=== PATIENT | female | born 1965 | race Caucasian/White ===

== ENCOUNTER 2020-06-06 14:05 | Emergency (ER) | payer MEDICAID, SELFPAY ==
--- NOTE | ~2020-06-06 | CT_ITS ---
EXAMINATION: CT CHEST WITHOUT CONTRAST CLINICAL INFORMATION: Chest radiograph shows infiltrates COMPARISON: None TECHNIQUE: Multidetector volumetric CT imaging of the chest was done. Axial MIP volume rendering provided. Sagittal and coronal reformatted images were obtained. This CT examination was performed using dose optimization techniques as appropriate, variously including the following: *Automated exposure control *Adjustment of mA and/or kV according to patient size (this includes techniques or standardized protocols for targeted exams where dose is matched to indication/reason for exam; i.e. extremities or head) *Use of iterative reconstruction technique DLP: 324 mGy-cm FINDINGS: LUNGS: Scattered ground-glass infiltrates/opacities are seen in both lungs suggestive of Covid pneumonia. MEDIASTINUM: Some small pretracheal and precarinal lymph nodes are present that are most likely reactive. PLEURA: There is no pleural effusion. No pleural mass or thickening. AXILLA: No lymphadenopathy. UPPER ABDOMEN: Status post cholecystectomy. OSSEOUS STRUCTURES: Degenerative changes present in the spine. No bony destructive lesions. CT/CT chest wo con IMPRESSION: Multi focal ground-glass opacity seen suggesting Covid pneumonia.
--- NOTE | ~2020-06-06 | XR_ITS ---
EXAMINATION: XR CHEST CLINICAL INFORMATION: SOB, wheezing COMPARISON: None TECHNIQUE: Frontal view of the chest was obtained. FINDINGS: The lungs are well-expanded with increased bilateral interstitial markings but no confluent infiltrate. The heart size and perivascular is normal. No gross bony abnormality seen. XR/XR chest 1V IMPRESSION: Bilateral increased interstitial markings, ? Interstitial Pneumonitis, less likely interstitial edema edema.
[2020-06-06 14:24] VITALS: BP 147/107; PULSE 97; RESP 30; TEMP 36.9; O2SAT 98
[2020-06-06 14:42] VITALS: BP 160/87; PULSE 85; RESP 26; TEMP 37; O2SAT 97; BMI 49.3
--- NOTE | 2020-06-06 14:45 | ECG_ITS ---
Test Reason : SOB Blood Pressure : / mmHG Vent. Rate : 078 BPM Atrial Rate : 078 BPM P-R Int : 140 ms QRS Dur : 072 ms QT Int : 376 ms P-R-T Axes : 065 021 -23 degrees QTc Int : 428 ms Normal sinus rhythm Nonspecific T wave abnormality Abnormal ECG When compared to the previous EKG of No significant changes seen Referred By: Rola Lopez Electronically Signed By:NORBERTO GIMENEZ MD
--- NOTE | 2020-06-06 15:22 | ED.GENADULT ---
HPI - General Adult General Chief complaint: Dyspnea Stated complaint: asthma Time Seen by Provider: 06/06/20 14:43 Source: patient Mode of arrival: ambulatory Limitations: language barrier History of Present Illness HPI narrative: 54 y/o female with history of obesity, asthma, anxiety, depression, hypothyroidism, anemia, DM2 who presents with 4 days of lethargy, fatigue, decreased appetite, loss of sense of taste and dry cough. She is anxious. She is worried she has COVID-19. She states someone was in her home 10 days ago who was later diagnosed with COVID-19. She has been having a dry cough and using her asthma inhaler with some relief. She denies chest pain. She denies fevers at home. Her biggest complaint is lack of appetite and fatigue. MD complaint: COVID symptoms Onset (ago): day(s) (3) Location: head, back and abdomen Radiation: non-radiation Severity: moderate Quality: aching Pain Consistency: intermittent Relieving factors: rest Exacerbating factors: movement Associated symptoms: cough, fever/chills, headaches, loss of appetite and malaise Treatments prior to arrival: none Related Data Previous Rx's Medication Instructions Recorded azithromycin [Zithromax Z-Ramon] See Rx Instructions .ROUTE 06/06/20 .COMPLEX #6 tab prednisone 40 mg PO DAILY #10 tab 06/06/20 Allergies Allergy/AdvReac Type Severity Reaction Status Date / Time No Known Allergies Allergy Unverified 01/10/20 18:38 [No Known Allergies*] Review of Systems Review of Systems: Constitutional: + Fever (subjective), No Chills ENT/Mouth: + sore throat, No Rhinorrhea, No Swallowing Difficulty Cardiovascular: No Chest Pain, + SOB, No Orthopnea, No Edema Respiratory: + Cough, No Sputum, No Wheezing, + dyspnea Gastrointestinal: No Nausea, No Vomiting, No Diarrhea, No abdominal Pain Genitourinary: No Dysuria, No Urinary Frequency, No Hematuria Musculoskeletal: No joint pain, No Myalgias Skin: No Skin Lesions, No rash Neuro: + Weakness, No Numbness, No Dizziness, + Headache Psych: + Anxiety/Panic, No Depression Heme/Lymph: No Bruising, No Lymphadenopathy Endocrine: No Polyuria, No Polydipsia PMFSH Past Medical History Attestation statement: The following information was validated with the patient. Medical History Anemia Anxiety Asthma GERD (gastroesophageal reflux disease) HLD (hyperlipidemia) HTN (hypertension) Hypothyroid Surgical History (Updated 06/06/20 @ 14:47 by Ravinder Peralta) Hx of appendectomy Hx of cholecystectomy Social History Social History Alcohol intake: never Smoking Status: Never smoker Use of substances other than those prescribed or required for medical reasons: No Advance Directives: No Advance Directives Information Provided: No Physical Exam Vital Signs: Vital Signs: Last Vital Signs Temp 98.7 F 06/06/20 16:21 Pulse 91 06/06/20 20:28 Resp 24 H 06/06/20 20:28 BP 133/77 06/06/20 20:28 Pulse Ox 95 06/06/20 20:28 Body Mass Index 49.3 Appearance: Alert. Oriented X3. Anxious. Eyes: Pupils equal, round and reactive to light. ENT: Pharynx normal. Neck: Normal inspection. Neck supple. CVS: Normal heart rate and rhythm. Pulses normal. Respiratory: No respiratory distress. Breath sounds normal. Abdomen: Soft and nontender. +BS x4 Skin: Skin warm and dry. Normal skin color. Normal skin turgor. No rashes. Extremities: No lower extremity edema. Neuro: Oriented X 3. No motor deficit. No sensory deficit. Course Course Course Narrative: 54 y/o female presenting with dry cough, loss of appetite and fatigue after COVID exposure. RR mid 20s on arrival and patient is extremely anxious. She is not hypoxic and her lungs are clear. No evidence active asthma exacerabtion, she took her inhaler WEAVER HAND LOOM with good effect. Will get COVID workup. Low dose ativan ordered for anxiety. Reevaluation(s) Reevaluation #1: CXR showing bilateral increased interstitial markings, imaging reviewed. It is sllightly worse than CXR from 2018. Her BNP is <10. Will get CT chest for further evaluation. Her COVID test is positive. ?COVID PNA. Reevaluation #2: CT scan showing COVID PNA- she was ambulated without any hypoxia or respiratory distress. She is stable for discharge at this time with steroids and azithromycin. She has been counseled extensively that if she develops difficulty breathing she should come back to the ER right away. Medical Decision Making Lab Data Result diagrams: 06/06/20 15:45 06/06/20 15:45 Labs: Lab Results 06/06/20 06/06/20 06/06/20 Range/Units 15:45 15:45 15:45 WBC 4.1 L (4.8-10.8) X10*3/uL RBC 5.28 (4.20-5.50) X10*6/uL Hgb 15.2 (12.0-16.0) g/dl Hct 47.1 H (37-47) % MCV 89.2 (80-98) fL MCH 28.8 (27.0-33.0) pg MCHC 32.3 (31.0-35.0) g/dl RDW 14.0 (11.0-16.0) % Plt Count 205 (160-400) X10*3/uL MPV 10.3 (9.4-12.3) fL Immature Gran % (Auto) 0.2 (0.0-0.4) % Neut % (Auto) 63.6 (45-73) % Lymph % (Auto) 27.8 (20-40) % [place] % (Auto) 7.5 (2-11) % Eos % (Auto) 0.7 (0-4) % Baso % (Auto) 0.2 (0-2) % Lymph # (Auto) 1.2 (1.2-4.9) X10*3/uL [place] # (Auto) 0.3 (0.1-1.2) X10*3/uL Eos # (Auto) 0.0 (0.0-0.4) X10*3/uL Baso # (Auto) 0.0 (0.0-0.2) X10*3/uL Abs Immat Gran (auto) 0.01 (0.00-0.03) X10*3/uL Absolute Neuts (auto) 2.6 (2.0-8.3) X10*3/uL Absolute Nucleated RBC 0.000 (0.0-0.012) X10*3/uL Nucleated RBC % (auto) 0.0 (0.0-0.2) /100WBC Hold Blue Top SEE NOTE Sodium 141 (135-145) mmol/L Potassium 3.7 (3.3-5.1) mmol/L Chloride 106 (96-108) mmol/L Carbon Dioxide 27 (22-29) mmol/L Anion Gap 12 (12-20) BUN 11 (9-16) mg/dL Creatinine 0.94 (0.5-1.4) mg/dL Estim Creat Clear Calc 84.2 Estimated GFR > 60 Random Glucose 120 H (60-115) mg/dL Calcium 8.2 L (8.4-10.2) mg/dL Magnesium 2.2 (1.6-2.6) mg/dL Total Bilirubin 0.5 (0.0-1.0) mg/dL Direct Bilirubin 0.4 (0.0-0.5) mg/dL AST 29 (5-31) U/L ALT 27 (0-31) U/L Alkaline Phosphatase 128 H (39-117) U/L C-Reactive Protein 2.04 H (< or = 0.50) mg/dL B-Natriuretic Peptide (<100) pg/mL Total Protein 7.0 (6.5-8.0) g/dL Albumin 3.9 (3.5-5.0) g/dL Procalcitonin ng/mL Coronavirus (PCR) (Negative) Influenza Type A (PCR) (Negative) Influenza Type B (PCR) (Negative) RSV RNA Qual (PCR) (Negative) 06/06/20 06/06/20 06/06/20 Range/Units 15:45 15:45 15:45 WBC (4.8-10.8) X10*3/uL RBC (4.20-5.50) X10*6/uL Hgb (12.0-16.0) g/dl Hct (37-47) % MCV (80-98) fL MCH (27.0-33.0) pg MCHC (31.0-35.0) g/dl RDW (11.0-16.0) % Plt Count (160-400) X10*3/uL MPV (9.4-12.3) fL Immature Gran % (Auto) (0.0-0.4) % Neut % (Auto) (45-73) % Lymph % (Auto) (20-40) % [place] % (Auto) (2-11) % Eos % (Auto) (0-4) % Baso % (Auto) (0-2) % Lymph # (Auto) (1.2-4.9) X10*3/uL [place] # (Auto) (0.1-1.2) X10*3/uL Eos # (Auto) (0.0-0.4) X10*3/uL Baso # (Auto) (0.0-0.2) X10*3/uL Abs Immat Gran (auto) (0.00-0.03) X10*3/uL Absolute Neuts (auto) (2.0-8.3) X10*3/uL Absolute Nucleated RBC (0.0-0.012) X10*3/uL Nucleated RBC % (auto) (0.0-0.2) /100WBC Hold Blue Top Sodium (135-145) mmol/L Potassium (3.3-5.1) mmol/L Chloride (96-108) mmol/L Carbon Dioxide (22-29) mmol/L Anion Gap (12-20) BUN (9-16) mg/dL Creatinine (0.5-1.4) mg/dL Estim Creat Clear Calc Estimated GFR Random Glucose (60-115) mg/dL Calcium (8.4-10.2) mg/dL Magnesium (1.6-2.6) mg/dL Total Bilirubin (0.0-1.0) mg/dL Direct Bilirubin (0.0-0.5) mg/dL AST (5-31) U/L ALT (0-31) U/L Alkaline Phosphatase (39-117) U/L C-Reactive Protein (< or = 0.50) mg/dL B-Natriuretic Peptide < 10 (<100) pg/mL Total Protein (6.5-8.0) g/dL Albumin (3.5-5.0) g/dL Procalcitonin 0.04 ng/mL Coronavirus (PCR) POSITIVE A (Negative) Influenza Type A (PCR) NEGATIVE (Negative) Influenza Type B (PCR) NEGATIVE (Negative) RSV RNA Qual (PCR) NEGATIVE (Negative) ECG Data Attestation: I personally reviewed and interpreted this ECG as follows: Interpretation: normal sinus rhythm, HR 78 bpm, normal CT interval, normal QTc, nonspecific t-wave abnormality Critical Care Time Critical Care Time Critical Care Time: No Discharge Plan Discharge Clinical Impression: COVID-19 Patient Disposition: Home, Self-Care Instructions: COVID-19 (Coronavirus Disease 2019) (ED) Additional Instructions: You were found to be COVID-19 POSITIVE today. Your oxygen levels were normal. Take the prescribed steroids and antibiotics for your lungs. Rest. Drink plenty of fluids. Do not go out in public for the next 10 days. Take over the counter cold/flu medications as needed for your symptoms. Take Tylenol and/or Motrin as needed for fevers and body aches. Follow up with your doctor this week. If you shortness of breath worsens , if you develop difficulty breathing or any other concerning symptom come back to the ER for further evaluation. Prescriptions: New azithromycin [Zithromax Z-Ramon] 250 mg tablet See Rx Instructions .ROUTE .COMPLEX Qty: 6 RF: 0 prednisone 20 mg tablet 40 mg PO DAILY Qty: 10 RF: 0 Print Language: [place]
[2020-06-06 15:46] VITALS: PULSE 81; RESP 22; O2SAT 98
[2020-06-06 15:56] LABS: MANUAL DIFF FLAG NO
[2020-06-06 16:03] LABS: Basophils Percent Auto 0.2 % (0-2); Eosinophils Percent Auto 0.7 % (0-4); Hematocrit 47.1 % (37-47); Hemoglobin 15.2 g/dl (12.0-16.0); Imm Gran Abs Auto 0.01 X10*3/uL (0.00-0.03); Imm Gran Pct Auto 0.2 % (0.0-0.4); Lymphocytes Absolute Auto 1.2 X10*3/uL (1.2-4.9); Lymphocytes Percent Auto 27.8 % (20-40); Mean Corpuscular HGB Conc 32.3 g/dl (31.0-35.0); Mean Corpuscular Hemoglobin 28.8 pg (27.0-33.0); Mean Corpuscular Volume 89.2 fL (80-98); Mean Platelet Volume 10.3 fL (9.4-12.3); Monocytes Absolute Auto 0.3 X10*3/uL (0.1-1.2); Monocytes Percent Auto 7.5 % (2-11); Neutrophils Absolute Auto 2.6 X10*3/uL (2.0-8.3); Neutrophils Percent Auto 63.6 % (45-73); Platelet Count 205 X10*3/uL (160-400); Red Blood Count 5.28 X10*6/uL (4.20-5.50); White Blood Count 4.1 X10*3/uL (4.8-10.8)
[2020-06-06 16:21] VITALS: BP 145/73; PULSE 86; RESP 22; TEMP 37.1; O2SAT 97
[2020-06-06] MEDS: LORazepam 1 MG TABLET PO (16:27)
[2020-06-06 16:34] LABS: Alanine Aminotransferase 27 U/L (0-31); Albumin Level 3.9 g/dL (3.5-5.0); Alkaline Phosphatase 128 U/L (39-117); Anion Gap 12 (12-20); Aspartate Amino Transferase 29 U/L (5-31); Bilirubin Direct 0.4 mg/dL (0.0-0.5); Bilirubin Total 0.5 mg/dL (0.0-1.0); Blood Urea Nitrogen 11 mg/dL (9-16); C Reactive Protein 2.04 mg/dL (< or = 0.50); Calcium 8.2 mg/dL (8.4-10.2); Carbon Dioxide 27 mmol/L (22-29); Chloride 106 mmol/L (96-108); Creatinine Clr Calc Pharmacy 84.2; Estimated Glomerular Filt Rate > 60; Glucose Random 120 mg/dL (60-115); Magnesium 2.2 mg/dL (1.6-2.6); Potassium 3.7 mmol/L (3.3-5.1); Sodium 141 mmol/L (135-145)
[2020-06-06 16:35] LABS: Influenza A PCR NEGATIVE (Negative); Influenza B PCR NEGATIVE (Negative); Resp Syncy Virus RNA Qual PCR NEGATIVE (Negative); SARS COV2 PCR INHOUSE POSITIVE (Negative)
[2020-06-06 16:43] LABS: B Type Natriuretic Peptide < 10 pg/mL (<100)
[2020-06-06 16:50] LABS: Procalcitonin 0.04 ng/mL
[2020-06-06 17:21] VITALS: BP 152/80; PULSE 87; RESP 19; O2SAT 95
[2020-06-06 20:28] VITALS: BP 133/77; PULSE 91; RESP 24; O2SAT 95
--- NOTE | 2020-06-06 20:40 | PC.NURSE ---
PROVIDER REQUESTED THAT WE AMBULATE PT ON SPO2 MONITOR. PT AMBULATORY, SPO2 REMAINED 96% ROOM AIR WHILE AMBULATORY DOWN HALLWAY. PT REQUESTED SOMETHING TO EAT AND ICE WATER.
== END 2020-06-06 22:00 | disposition home or self-care (01) ==
PROVIDERS: Physician Assistant; Emergency Provider Emergency Medicine Emergency Medical Services; PCP Internal Medicine
DX: U07.1 COVID-19 (principal); J12.82 Pneumonia due to coronavirus disease 2019; F41.9 Anxiety disorder, unspecified; I10 Essential (primary) hypertension; J45.909 Unspecified asthma, uncomplicated; E11.9 Type 2 diabetes mellitus without complications; Z79.899 Other long term (current) drug therapy
CPT/HCPCS: 0241U; 36415; 71045; 71250; 80048; 80076; 83735; 83880; 84145; 85025; 86140; 93005; 96365; 96366; 96375; 99284

== ENCOUNTER 2020-09-15 10:48 | Outpatient (REF) | payer MEDICAID, SELFPAY ==
--- NOTE | ~2020-09-15 | XR_ITS ---
EXAMINATION: XR KNEE, RIGHT XR KNEE, LEFT CLINICAL INFORMATION: Bilateral knee pain. COMPARISON: Radiographs bilateral knees 10/24/2013. TECHNIQUE: Each knee is imaged in 4 views. There are a total of 8 views. FINDINGS: Right: There is no fracture, dislocation, or suprapatellar effusion. Hoffa's fat pad appears normal. There is no joint narrowing or erosive change or chondrocalcinosis. Mild spurring is present at the quadriceps insertion patella. Left: There is no fracture, dislocation, or definite suprapatellar effusion. Hoffa's fat pad appears normal. No significant joint narrowing. No subchondral sclerosis, erosive change, or chondrocalcinosis. A small stable osteochondroma is again suggested from the medial side tibial metaphysis with corticated margin merging with the [place] bone. No periostitis. Axial patellar views suggest mild lateral tilting. XR/XR knee LT 4V IMPRESSION: 1. Right: Unremarkable right knee. 2. Left: Small stable osteochondroma proximal medial tibia similar to 2014. Mild lateral tilting patella.
--- NOTE | ~2020-09-15 | XR_ITS ---
EXAMINATION: XR KNEE, RIGHT XR KNEE, LEFT CLINICAL INFORMATION: Bilateral knee pain. COMPARISON: Radiographs bilateral knees 10/24/2013. TECHNIQUE: Each knee is imaged in 4 views. There are a total of 8 views. FINDINGS: Right: There is no fracture, dislocation, or suprapatellar effusion. Hoffa's fat pad appears normal. There is no joint narrowing or erosive change or chondrocalcinosis. Mild spurring is present at the quadriceps insertion patella. Left: There is no fracture, dislocation, or definite suprapatellar effusion. Hoffa's fat pad appears normal. No significant joint narrowing. No subchondral sclerosis, erosive change, or chondrocalcinosis. A small stable osteochondroma is again suggested from the medial side tibial metaphysis with corticated margin merging with the [place] bone. No periostitis. Axial patellar views suggest mild lateral tilting. XR/XR knee RT 4V IMPRESSION: 1. Right: Unremarkable right knee. 2. Left: Small stable osteochondroma proximal medial tibia similar to 2014. Mild lateral tilting patella.
== END 2020-09-15 10:49 | disposition home or self-care (01) ==
LOC: HO.XRAY 10:48
PROVIDERS: PCP Nurse Practitioner Primary Care; Visit Provider Nurse Practitioner Primary Care
DX: M25.562 Pain in left knee (principal); M25.561 Pain in right knee
CPT/HCPCS: 73564

== ENCOUNTER → 2020-10-22 10:22 | Outpatient (BNVA) | payer MEDICAID, SELFPAY | PROVIDERS: PCP Nurse Practitioner Primary Care; Visit Provider Physician Assistant | DX: M17.12 Unilateral primary osteoarthritis, left knee (principal) | CPT/HCPCS: 20610; 99202; J1020 ==

== ENCOUNTER → 2020-11-12 11:02 | Outpatient (BNVA) | payer MEDICAID, SELFPAY | PROVIDERS: PCP Nurse Practitioner Primary Care; Visit Provider Physician Assistant | DX: M17.12 Unilateral primary osteoarthritis, left knee (principal); M25.562 Pain in left knee | CPT/HCPCS: 99212 ==

== ENCOUNTER 2020-12-15 08:44 | Outpatient (REF) | payer MEDICAID, SELFPAY ==
--- NOTE | ~2020-12-15 | MR_ITS ---
EXAMINATION: MR KNEE WITHOUT CONTRAST, LEFT CLINICAL INFORMATION: Unilateral primary osteoarthritis, left knee. Patient reports severe left knee pain for 5-6 months. COMPARISON: XR left knee 09/15/2020 TECHNIQUE: MRI of the knee without contrast was performed using routine sequences on a high-field scanner. FINDINGS: MENISCI: Medial Meniscus: There is complex degeneration and irregular partial radial-type tearing of the posterior horn of the medial meniscus extending to the posterior root. There is moderate medial extrusion of the body. There is a focal defect in the peripheral inferior surface of the body suspicious for a focal tear. Lateral Meniscus: There degenerative irregularity and suspected superimposed partial tearing of the anterior root of the lateral meniscus. The rest of the lateral meniscus appears intact. LIGAMENTS: Cruciate: Intact Collateral: There is mild swelling and intermediate signal abnormality of the proximal medial collateral ligament consistent with a mild sprain of indeterminate age. The lateral supporting structures are intact. EXTENSOR MECHANISM: Intact ARTICULAR CARTILAGE/BONE: Patellofemoral Compartment: There is focal cartilage surface irregularity and [id number] thinning at the medial margin of the medial facet of the patella. There is patchy idli-in-eaeizcwj cartilage irregularity and thinning in the femoral trochlea, most prominent superolaterally. There are small marginal osteophytes. Medial Compartment: There is patchy cartilage loss ranging from mild to high-grade. There is mild subchondral bone marrow edema in the medial tibial plateau. There are small marginal osteophytes. Incidental note is made of a small sessile osteochondroma involving the proximal medial tibial metaphysis. Lateral Compartment: Normal. JOINT FLUID AND BURSAE: Moderate joint effusion. No Davidson's cyst. Trace edema/fluid deep to the distal pes anserine tendon suggesting mild bursitis. ADDITIONAL FINDINGS: There is mild distal semimembranosus insertional tendinosis and a small low-grade partial tear. MR/MR knee LT wo con IMPRESSION: 1. Complex degeneration and irregular partial radial-type tearing of the posterior horn of the medial meniscus extending to the posterior root. Moderate medial extrusion of the body. Focal peripheral undersurface tear of the body. 2. Degeneration and superimposed partial tearing of the anterior root of the lateral meniscus. 3. Mild proximal medial collateral ligament sprain of indeterminate age. 4. Bwuz-zp-hrdxmmmt patellofemoral and moderate medial compartment arthrosis. 5. Moderate joint effusion. 6. Mild pes anserine bursitis. 7. Mild distal semimembranosus insertional tendinosis and small low-grade partial tear.
== END 2020-12-15 08:45 | disposition home or self-care (01) ==
LOC: HO.MRI 08:44
PROVIDERS: PCP Nurse Practitioner Primary Care; Visit Provider Physician Assistant
DX: M17.12 Unilateral primary osteoarthritis, left knee (principal)
CPT/HCPCS: 73721

== ENCOUNTER 2020-12-17 12:24 | Outpatient (REF) | payer MEDICAID, SELFPAY ==
--- NOTE | ~2020-12-17 | US_ITS ---
EXAMINATION: US PELVIS CLINICAL INFORMATION: Excessive and frequent menstruation COMPARISON: None TECHNIQUE: Ultrasound of the pelvis is performed using both transabdominal and transvaginal transducers along with Doppler. Transvaginal imaging is performed due to inadequate visualization transabdominally. FINDINGS: Uterus: The uterus is anteverted and measures 10.7 x 3.4 x 5.4 cm. The double wall endometrial thickness is 6 mm. The uterus is smooth in contour and has normal myometrial echogenicity. No visible fibroid. Cervical length was not measured but nabothian cysts are present. No free fluid present in the cul-de-sac. Adnexa: Neither ovary could be seen despite both transabdominal and endovaginal scanning. US/US pelvic and transvaginal IMPRESSION: Negative exam.
== END 2020-12-17 12:25 | disposition home or self-care (01) ==
LOC: HO.US 12:24
PROVIDERS: PCP Nurse Practitioner Primary Care; Visit Provider Advanced Practice Midwife
DX: N92.1 Excessive and frequent menstruation with irregular cycle (principal)
CPT/HCPCS: 76830; 76856

== ENCOUNTER → 2021-01-23 08:08 | Outpatient (BNVA) | payer MEDICAID, SELFPAY | PROVIDERS: Visit Provider Physician Assistant | DX: M17.12 Unilateral primary osteoarthritis, left knee (principal) | CPT/HCPCS: 99212 ==

== ENCOUNTER 2021-01-30 09:46 | Outpatient (REF) | payer MEDICAID, SELFPAY ==
[2021-01-30 11:03] LABS: MANUAL DIFF FLAG NO
[2021-01-30 12:03] LABS: Basophils Percent Auto 0.3 % (0-2); Eosinophils Absolute Auto 0.2 X10*3/uL (0.0-0.4); Eosinophils Percent Auto 2.1 % (0-4); Hemoglobin 13.9 g/dl (12.0-16.0); Imm Gran Abs Auto 0.03 X10*3/uL (0.00-0.03); Imm Gran Pct Auto 0.3 % (0.0-0.4); Lymphocytes Absolute Auto 2.2 X10*3/uL (1.2-4.9); Lymphocytes Percent Auto 24.7 % (20-40); Mean Corpuscular HGB Conc 32.3 g/dl (31.0-35.0); Mean Corpuscular Volume 89.8 fL (80-98); Mean Platelet Volume 10.6 fL (9.4-12.3); Monocytes Absolute Auto 0.7 X10*3/uL (0.1-1.2); Monocytes Percent Auto 7.4 % (2-11); Neutrophils Absolute Auto 5.7 X10*3/uL (2.0-8.3); Neutrophils Percent Auto 65.2 % (45-73); Platelet Count 294 X10*3/uL (160-400); Red Blood Count 4.79 X10*6/uL (4.20-5.50); Red Cell Distribution Width 13.8 % (11.0-16.0); White Blood Count 8.8 X10*3/uL (4.8-10.8)
== END 2021-01-30 09:47 | disposition home or self-care (01) ==
LOC: HO.LAB 09:46
PROVIDERS: PCP Nurse Practitioner Primary Care; Visit Provider Internal Medicine Pulmonary Disease
DX: J45.909 Unspecified asthma, uncomplicated (principal); Z91.09 Other allergy status, other than to drugs and biological substances
CPT/HCPCS: 36415; 82785; 85025; 86003; 99202